=== PATIENT | female | born 2000 | race Caucasian/White ===

== ENCOUNTER 2022-12-20 15:45 | Emergency (ER) | payer OTHER ==
[~2022-12-20] VITALS: Ht 160 cm; Wt 77.1 kg
[2022-12-20 16:00] VITALS: BP_SYST 128
--- NOTE | 2022-12-20 16:00 | NUR ---
Patient to ER bed 06 to gown for evaluation. Side rails up. Report given to EMILIA WHITMORE
--- NOTE | 2022-12-20 16:05 | NUR ---
Pt came in by self to ER with complaint of lower back pain for 1 week. PT stated she was moving something heavy and hurt her back. PT states she saw a Chiropracter for re-adjustment with no relief of pain. Pain gradiant 6/10 sharp shooting, intermittent mainly on left and right side of lower back not cenrter. Bed at low position. side rail up only one per PT prefrance.
--- NOTE | 2022-12-20 16:08 | NUR ---
Urine collected for POC urinalysis and HCG screen.
--- NOTE | 2022-12-20 16:09 | NUR ---
ER at bedside examining patient.
[2022-12-20] MEDS ORDERED: KETOROLAC TROMETHAMINE 30 MG VIAL IM ONE (16:15)
[2022-12-20] MEDS ORDERED: CYCL10TA24 PO (16:21)
[2022-12-20] MEDS ORDERED: NAPR-690 PO (16:21)
--- NOTE | 2022-12-20 16:39 | NUR ---
Gave medication per MD order.
[2022-12-20 16:50] VITALS: BP_SYST 128
--- NOTE | 2022-12-20 17:05 | NUR ---
Patient given written and verbal discharge instructions and verbalizes understanding. ER MD discussed with patient the results and treatment provided. Patient in stable condition. ID arm band removed. Rx of given. Patient educated on pain management and to follow up with PMD. Pain Scale . Opportunity for questions provided and answered. Medication side effect fact sheet provided.
== END 2022-12-20 16:50 | disposition home or self-care (01) ==
LOC: SED 15:45
DX: S39.012A Strain of muscle, fascia and tendon of lower back, initial encounter (principal); Z79.899 Other long term (current) drug therapy; X50.0XXA Overexertion from strenuous movement or load, initial encounter; Y93.89 Activity, other specified; Y92.89 Other specified places as the place of occurrence of the external cause; Y99.8 Other external cause status
CPT/HCPCS: 99283; 81002; 81025; 96372; J1885

== ENCOUNTER 2024-06-04 09:13 | Emergency (ER) | payer OTHER ==
[~2024-06-04] VITALS: Ht 157.5 cm; Wt 83.9 kg
[~2024-06-04 09:13] MED LIST: CYCL10TA24 PO; NAPR-690 PO
[2024-06-04 09:24] VITALS: BP_SYST 120; PULSE 80; RESP 16; TEMP 97.8; O2SAT 98
[2024-06-04] MEDS: DEXAMETHASONE SOD PHOSPHATE 10 MG/ML VIAL IM ONE (09:33)
[2024-06-04] MEDS ORDERED: FEXO180T94 PO (09:40)
[2024-06-04] MEDS ORDERED: METH-776 PO (09:40)
[2024-06-04 09:46] VITALS: BP_SYST 120; PULSE 80; RESP 16; TEMP 97.8; O2SAT 98
== END 2024-06-04 15:57 | disposition home or self-care (01) ==
LOC: SED 09:13
DX: R21 Rash and other nonspecific skin eruption (principal); T78.49XA Other allergy, initial encounter; Z79.899 Other long term (current) drug therapy; X58.XXXA Exposure to other specified factors, initial encounter
CPT/HCPCS: 99283; 96372; J1100